=== PATIENT | female | born 1980 | race Caucasian/White ===

== ENCOUNTER 2018-09-05 14:45 | Emergency (ER) | payer BC ==
--- NOTE | 2018-09-05 15:25 | ER Document Report ---
ED Medical Screen (RME) - General Chief Complaint: Palpitations Stated Complaint: HEART RATE ISSUES Time Seen by Provider: 09/05/18 15:12 Primary Care Provider: RO,RICH [Primary Care Provider] - Follow up as needed Notes: Patient is a 38-year-old female that presents to the emergency department for chief complaint of palpitations. No history of this, occurred while she was at work sitting down she felt her heart racing. ROS: Other than noted above, the 12 point review of systems was reviewed with the patient and were negative, all pertinent findings are included in the HPI. PHYSICAL EXAMINATION: Vital signs reviewed. GENERAL: Well-appearing, well-nourished and in no acute distress. HEAD: Atraumatic, normocephalic. EYES: Pupils equal round extraocular movements intact, conjunctiva are normal. ENT: Nares patent NECK: Normal range of motion CV: Heart regular rate and rhythm LUNGS: No respiratory distress Musculoskeletal: Normal range of motion NEUROLOGICAL: Normal speech PSYCH: Normal mood, normal affect. MDM: Patient seen and examined for rapid initial assessment. Vital signs reviewed. A comprehensive ED assessment and evaluation of the patient, analysis of test results and completion of the medical decision making process will be conducted by additional ED providers. *Note is created using voice recognition software and may contain spelling, syntax or grammatical errors. - Related Data Allergies/Adverse Reactions: ciprofloxacin [From Cipro] Allergy (Verified 09/05/18 15:21) Penicillins Allergy (Verified 09/05/18 14:48) codeine Adverse Reaction (Verified 09/05/18 15:21) Past Medical History - Social History Chew tobacco use (# tins/day): No Frequency of alcohol use: None Drug Abuse: None Renal/ Medical History: Denies: Hx Peritoneal Dialysis Past Surgical History: Reports: Hx Oral Surgery - teeth pulled, Hx Tubal Ligation - 2002 - Immunizations Hx Diphtheria, Pertussis, Tetanus Vaccination: Yes - 2007 Physical Exam - Vital signs Vitals: Temp Pulse Resp BP Pulse Ox 99.3 F 95 16 152/86 H 99 09/05/18 15:09 09/05/18 15:09 09/05/18 15:09 09/05/18 15:09 09/05/18 15:09 Course - Vital Signs Vital signs: Temp Pulse Resp BP Pulse Ox 99.3 F 95 16 152/86 H 99 09/05/18 15:09 09/05/18 15:09 09/05/18 15:09 09/05/18 15:09 09/05/18 15:09 Doctor's Discharge - Discharge Referrals: LOCAL,NO [Primary Care Provider] - Follow up as needed
[2018-09-05] MEDS ORDERED: NORMAL SALINE 1000 ML 1,000 ML IV ONE (15:26)
--- NOTE | 2018-09-05 15:54 | RADIOLOGY REPORT (SQ) ---
EXAM DESCRIPTION: CHEST SINGLE VIEW COMPLETED DATE/TIME: 09/05/2018 3:37 pm REASON FOR STUDY: palpitations COMPARISON: None. EXAM PARAMETERS: NUMBER OF VIEWS: One view. TECHNIQUE: Single frontal radiographic view of the chest acquired. RADIATION DOSE: NA LIMITATIONS: None. FINDINGS: LUNGS AND PLEURA: No opacities, masses or pneumothorax. No pleural effusion. MEDIASTINUM AND HILAR STRUCTURES: No masses. Contour normal. HEART AND VASCULAR STRUCTURES: Heart normal in size. Normal vasculature. BONES: No acute findings. HARDWARE: None in the chest. OTHER: No other significant finding. IMPRESSION: 1. NO ACUTE RADIOGRAPHIC FINDING IN THE CHEST. TECHNICAL DOCUMENTATION: JOB ID: [id number] [employer]- All Rights Reserved Reading location - IP/workstation name: [email or web address]
[2018-09-05 16:33] LABS: ABSOLUTE BASOPHILS # (AUTO) 0.1 10^3/uL (0.0-0.2); ABSOLUTE EOSINOPHILS # (AUTO) 0.1 10^3/uL (0.0-0.6); ABSOLUTE LYMPHOCYTES (AUTO) 2.3 10^3/uL (0.5-4.7); ABSOLUTE MONOCYTES (AUTO) 0.7 10^3/uL (0.1-1.4); ABSOLUTE NEUT (AUTO) 7.2 10^3/uL (1.7-8.2); BASOPHILS % (AUTO) 0.5 % (0-2); HEMOGLOBIN 14.6 g/dL (12.0-15.5); LYMPHOCYTES % (AUTO) 22.4 % (13-45); MEAN CORPUSCULAR HEMOGLOBIN 31.1 pg (27.0-33.4); MEAN CORPUSCULAR HGB CONC 35.5 g/dL (32.0-36.0); MEAN CORPUSCULAR VOLUME 88 fl (80-97); MONOCYTES % (AUTO) 6.7 % (3-13); PLATELET COUNT 198 10^3/uL (150-450); RED BLOOD COUNT 4.69 10^6/uL (3.72-5.28); RED CELL DISTRIBUTION WIDTH 12.4 % (11.5-14.0); SEGMENTED NEUTROPHILS % (AUTO) 69.4 % (42-78); TOTAL CELLS COUNTED % (AUTO) 100 %; WHITE BLOOD COUNT 10.3 10^3/uL (4.0-10.5)
[2018-09-05 16:44] LABS: ALANINE AMINOTRANSFERASE 17 U/L (9-52); ALBUMIN 4.7 g/dL (3.5-5.0); ALKALINE PHOSPHATASE 60 U/L (38-126); ANION GAP 10 (5-19); ASPARTATE AMINO TRANSFERASE 18 U/L (14-36); BILIRUBIN,DIRECT 0.1 mg/dL (0.0-0.4); BILIRUBIN,TOTAL 0.3 mg/dL (0.2-1.3); BLOOD UREA NITROGEN 10 mg/dL (7-20); CALCIUM 9.9 mg/dL (8.4-10.2); CARBON DIOXIDE 26 mmol/L (22-30); CHLORIDE 105 mmol/L (98-107); CREATINE KINASE 61 U/L (30-135); GLUCOSE 101 mg/dL (75-110); SODIUM 140.7 mmol/L (137-145); TOTAL PROTEIN 7.4 g/dL (6.3-8.2)
[2018-09-05 16:55] LABS: CREATINE KINASE MB 0.48 ng/mL (<4.55)
[2018-09-05 16:56] LABS: TROPONIN I < 0.012 ng/mL
[2018-09-05 17:00] LABS: FREE T4 (FREE THYROXINE) 1.07 ng/dL (0.78-2.19)
[2018-09-05 17:14] LABS: THYROID STIMULATING HORMONE 2.43 uIU/mL (0.47-4.68)
--- NOTE | 2018-09-05 17:30 | ER Document Report ---
ED General - General Chief Complaint: Palpitations Stated Complaint: HEART RATE ISSUES Time Seen by Provider: 09/05/18 15:12 Primary Care Provider: RICH STARR [NO LOCAL MD] - Follow up as needed Mode of Arrival: Ambulatory Information source: Patient Notes: 38-year-old female with no medical problems presents emergency department with complaints of palpitations. Patient states that around 2PM she was sitting in her car eating lunch and watching Netflix during her break when she began to have the palpitations. Patient states that she just felt like her heart was beating fast. It did not resolve so she contacted EMS. They told her to come to the emergency department for an evaluation. Patient states that the palpitations have resolved. She is feeling much better now. She denies any chest pain, shortness of breath, abdominal pain, nausea, vomiting. She states that she does drink caffeine but has had less caffeine intake today. She denies any illicit drugs. Patient has had a tubal ligation. Patient denies a history of anxiety. - HPI Onset: This afternoon Onset/Duration: Sudden Quality of pain: No pain Severity: Mild Pain Level: Denies Associated symptoms: None Exacerbated by: Denies Relieved by: Denies Similar symptoms previously: No Recently seen / treated by doctor: No - Related Data Allergies/Adverse Reactions: ciprofloxacin [From Cipro] Allergy (Verified 09/05/18 15:21) Penicillins Allergy (Verified 09/05/18 14:48) codeine Adverse Reaction (Verified 09/05/18 15:21) Past Medical History - General Information source: Patient - Social History Smoking Status: Current Every Day Smoker Chew tobacco use (# tins/day): No Frequency of alcohol use: None Drug Abuse: None Family History: Reviewed & Not Pertinent Patient has suicidal ideation: No Patient has homicidal ideation: No Renal/ Medical History: Denies: Hx Peritoneal Dialysis Past Surgical History: Reports: Hx Oral Surgery - teeth pulled, Hx Tubal Ligation - 2002 - Immunizations Hx Diphtheria, Pertussis, Tetanus Vaccination: Yes - 2007 Review of Systems - Review of Systems Constitutional: No symptoms reported EENT: No symptoms reported Cardiovascular: Palpitations Respiratory: No symptoms reported Gastrointestinal: No symptoms reported Genitourinary: No symptoms reported Female Genitourinary: No symptoms reported Musculoskeletal: No symptoms reported Skin: No symptoms reported Hematologic/Lymphatic: No symptoms reported -: Yes All other systems reviewed and negative Physical Exam - Vital signs Vitals: Temp Pulse Resp BP Pulse Ox 99.3 F 95 16 152/86 H 99 09/05/18 15:09 09/05/18 15:09 09/05/18 15:09 09/05/18 15:09 09/05/18 15:09 - Notes Notes: PHYSICAL EXAMINATION: GENERAL: Well-appearing, well-nourished and in no acute distress. HEAD: Atraumatic, normocephalic. EYES: Pupils equal round and reactive to light, extraocular movements intact, conjunctiva are normal. ENT: Nares patent, oropharynx clear without exudates. Moist mucous membranes. NECK: Normal range of motion, supple without lymphadenopathy LUNGS: Breath sounds clear to auscultation bilaterally and equal. No wheezes rales or rhonchi. HEART: Regular rate and rhythm without murmurs ABDOMEN: Soft, nontender, nondistended abdomen. No guarding, no rebound. No masses appreciated. Female : deferred Musculoskeletal: Normal range of motion, no pitting or edema. No cyanosis. NEUROLOGICAL: Cranial nerves grossly intact. Normal speech, normal gait. Normal sensory, motor exams PSYCH: Normal mood, normal affect. SKIN: Warm, Dry, normal turgor, no rashes or lesions noted. Course - Re-evaluation Re-evalutation: 09/05/18 17:29 EKG: Ventricular rate 97, NC interval 152, QRS duration 90, QTc 437, normal si nus rhythm. No ST segment elevation. 09/05/18 18:13 Labs and imaging obtained. No acute process was identified. Patient states that she is feeling better in the emergency department and is comfortable with discharge home. I instructed the patient to follow-up with her primary care physician this week and to return to the emergency department for worsening symptoms. - Vital Signs Vital signs: Temp Pulse Resp BP Pulse Ox 99.3 F 95 22 H 114/73 100 09/05/18 15:09 09/05/18 15:09 09/05/18 18:01 09/05/18 18:01 09/05/18 18:01 - Laboratory Result Diagrams: 09/05/18 16:05 09/05/18 16:05 Discharge - Discharge Clinical Impression: Palpitations Condition: Good Disposition: HOME, SELF-CARE Instructions: Palpitations (Irregular or Rapid Heartrate) ([facility]) Referrals: LOCALMD,NO [NO LOCAL MD] - Follow up as needed EUGENE REN MD [ACTIVE STAFF] - Follow up as needed
--- NOTE | 2018-09-05 17:57 | EKG REPORT ---
SEVERITY:- NORMAL ECG - SINUS RHYTHM : Confirmed by: Ruel Bautista MD 05-Sep-2018 17:56:47
[2018-09-05 18:33] VITALS: BP 135/86
== END 2018-09-05 18:36 | disposition home or self-care (01) ==
LOC: ER 14:45
DX: R00.2 Palpitations (principal); F17.200 Nicotine dependence, unspecified, uncomplicated
CPT/HCPCS: 93005; 99285; 36415; 84439; 82553; 82550; 84443; 85025; 80053; 84484; 71045; 93010; J7030; 96360

== ENCOUNTER 2018-12-22 19:23 | Emergency (ER) | payer BC ==
[2018-12-22] MEDS ORDERED: METHYLPREDNISOLONE INJ 125 MG/2 ML SDV IV ONE (19:43)
[2018-12-22] MEDS ORDERED: EPINEPHRINE INJ/PF 1 MG/1 ML AMPULE IM ONE (19:43)
[2018-12-22] MEDS ORDERED: DIPHENHYDRAMINE HCL 50 MG/ML VIAL IV ONE (19:43)
[2018-12-22] MEDS ORDERED: FAMOTIDINE INJ/PF 20 MG/2 ML SDV IV ONE (19:43)
--- NOTE | 2018-12-22 19:49 | ER Document Report ---
Addendum entered and electronically signed by SUSAN DEWEY PA-C 12/22/18 19:53: Course - Re-evaluation Re-evalutation: 12/22/18 19:53 Pt now starting to get some hives to her right arm. - Vital Signs Vital signs: Temp Pulse Resp BP Pulse Ox 98.4 F 97 18 141/82 H 100 12/22/18 19:31 12/22/18 19:31 12/22/18 19:31 12/22/18 19:31 12/22/18 19:31 Original Note: ED Medical Screen (RME) - General Chief Complaint: Allergic Reaction Stated Complaint: POSSIBLE ALLERGIC REACTION Time Seen by Provider: 12/22/18 19:39 TRAVEL OUTSIDE OF THE [place] IN LAST 30 DAYS: No - HPI Notes: 12/22/18 19:47 Patient is a 38-year-old female with no significant past medical history who presents complaining of feeling of throat closing, some trouble swallowing after eating seafood about 2-1/2 hours ago. Patient states that she started noticing symptoms most of the way through her meal which prompted her to stop eating at that time. Patient states that she does feel somewhat anxious and warm as well. She has not taken any medicines for her symptoms. She has not noted any trouble breathing or drooling/hoarseness. Denies REVELES, fever, neck pain, URI, CP, SOB, wheezing, abd pain, dysuria, n/v/d, back pain, or rash. I have treated and performed a rapid initial assessment of this patient. A comprehensive ED assessment and evaluation of the patient, analysis of test results and completion of medical decision making process will be conducted by additional ED providers. PHYSICAL EXAMINATION: GENERAL: Well-appearing, well-nourished and in no acute distress. A&Ox4. Answers questions appropriately. Moves comfortably w/o notable distress HEAD: Atraumatic, normocephalic. EYES: Pupils equal round and reactive to light, extraocular movements intact, sclera anicteric, conjunctiva are normal. ENT: Nares patent and with clear discharge. oropharynx w/o erythema without exudates. 3+ tonsilar hypertrophy without erythema no exudate. No palatine shift. Uvula midline. No tongue protrusion. No drooling, hoarseness. Moist mucous membranes. No sinus tenderness. NECK: Normal range of motion, supple without lymphadenopathy. No rigidity/meningismus. LUNGS: Breath sounds clear to auscultation bilaterally and equal. No wheezes rales or rhonchi. No retractions HEART: Regular rate and rhythm without murmurs, rubs, gallops. NEUROLOGICAL: Normal speech, normal gait. PSYCH: Normal mood, normal affect. SKIN: Warm, Dry, normal turgor, no rashes or lesions noted. - Related Data Allergies/Adverse Reactions: ciprofloxacin [From Cipro] Allergy (Verified 09/05/18 15:21) Penicillins Allergy (Verified 09/05/18 14:48) codeine Adverse Reaction (Verified 09/05/18 15:21) Past Medical History - Social History Frequency of alcohol use: None Drug Abuse: None Renal/ Medical History: Denies: Hx Peritoneal Dialysis Past Surgical History: Reports: Hx Oral Surgery - teeth pulled, Hx Tubal Ligation - Immunizations Hx Diphtheria, Pertussis, Tetanus Vaccination: Yes - 2007 Physical Exam - Vital signs Vitals: Temp Pulse Resp BP Pulse Ox 98.4 F 97 18 141/82 H 100 12/22/18 19:31 12/22/18 19:31 12/22/18 19:31 12/22/18 19:31 12/22/18 19:31 Course - Vital Signs Vital signs: Temp Pulse Resp BP Pulse Ox 98.4 F 97 18 141/82 H 100 12/22/18 19:31 12/22/18 19:31 12/22/18 19:31 12/22/18 19:31 12/22/18 19:31
--- NOTE | 2018-12-22 20:34 | ER Document Report ---
ED General - General Chief Complaint: Allergic Reaction Stated Complaint: POSSIBLE ALLERGIC REACTION Time Seen by Provider: 12/22/18 19:39 Mode of Arrival: Ambulatory Information source: Patient TRAVEL OUTSIDE OF THE [place] IN LAST 30 DAYS: No - HPI Patient complains to provider of: Allergic reaction Onset: Just prior to arrival Onset/Duration: Sudden Severity: None Associated symptoms: Other - Tightness in throat; slight difficulty in swallowing Exacerbated by: Denies Relieved by: Denies Similar symptoms previously: No Recently seen / treated by doctor: No Notes: 38-year-old female went to [place] this afternoon with her . She ate raw oysters, sharp, and [place]ian fries. On the way home started feeling tight in her throat and felt that was slightly difficult to swallow. No problems breathing. Slight urticarial rash developed shortly after. Came in to be seen. No history of this in the past. Has had an anaphylactic reaction to penicillin but said that this does not feel like that. - Related Data Allergies/Adverse Reactions: ciprofloxacin [From Cipro] Allergy (Verified 09/05/18 15:21) Penicillins Allergy (Verified 09/05/18 14:48) codeine Adverse Reaction (Verified 09/05/18 15:21) Past Medical History - General Information source: Patient - Social History Smoking Status: Current Every Day Smoker Frequency of alcohol use: None Drug Abuse: None Family History: Reviewed & Not Pertinent Patient has suicidal ideation: No Patient has homicidal ideation: No Renal/ Medical History: Denies: Hx Peritoneal Dialysis Past Surgical History: Reports: Hx Oral Surgery - teeth pulled, Hx Tubal Ligation - Immunizations Hx Diphtheria, Pertussis, Tetanus Vaccination: Yes - 2007 Review of Systems - Review of Systems Notes: Constitutional: No fevers. No chills. EENT: Slight dysphagia. Cardiovascular: No chest pain. No palpitations. Respiratory: No cough. No shortness of breath. No respiratory distress. Gastrointestinal: No abdominal pain. No nausea, vomiting, or diarrhea. Genitourinary: Atraumatic. No lesions. No pain. No discharge. Musculoskeletal: Atraumatic. No swelling. No deformities. Skin: Slight hives Lymphatic: No swollen lymph nodes. Neurologic: No headache. No syncope. Psychiatric: No suicidal or homicidal ideation. Physical Exam - Vital signs Vitals: Temp Pulse Resp BP Pulse Ox 98.4 F 97 18 141/82 H 100 06/09/19 19:31 12/22/18 19:31 12/22/18 19:31 12/22/18 19:31 12/22/18 19:31 - Notes Notes: General: Well-developed, well-nourished. In no acute distress. Non-toxic appearing. Cardiac: Well-perfused. Regular rate and rhythm. No murmurs, rubs, or gallops. Pulmonary: No respiratory distress. No cyanosis. Bilateral lung fiels are clear to auscultation. Abdominal: Non-distended. Non-rigid. Bowels sounds are present in all four quadrants. No guarding or rebound. HEENT: Head is atraumatic. Conjunctivae not reddened. No tearing. PERRL. EOMI. Orbits atraumatic. No periorbital swelling or erythema. Oropharynx is without erythema, swelling, or exudates. Neck: Supple. No adenopathy. No meningismus. Dermatologic: Mild urticarial rash Chest: Atraumatic. No chest wall tenderness to palpation. Musculoskeletal: Moves all extremities well. No range of motion deficits. no muscular or joint tenderness. No paraspinal muscle tenderness. no midline spinal tenderness or step-off. Genitourinary: Examination deferred Neurologic: No gross neurologic deficits. Psychiatric: Normal mood. Course - Re-evaluation Re-evalutation: 12/22/18 20:33 Patient got the full medical cocktail including epinephrine. We will monitor her closely for at least a couple of hours. 12/22/18 23:24 Patient continues to be asymptomatic. Feeling significantly improved since her initial symptoms. I will get her ready to go with prednisone, Benadryl, Pepcid, and EpiPen prescriptions. - Vital Signs Vital signs: Temp Pulse Resp BP Pulse Ox 98.4 F 97 18 141/82 H 100 12/22/18 19:31 12/22/18 19:31 12/22/18 19:31 12/22/18 19:31 12/22/18 19:31 Discharge - Discharge Clinical Impression: Allergic reaction to seafood Condition: Good Disposition: HOME, SELF-CARE Instructions: Acute Allergic Reaction ([facility]), Antihistamines ([facility]), Use of Diphenhydramine, Epinephrine, Steroid Medication Injection, Steroid Medication Additional Instructions: Be sure to have all of your medications filled and keep the EpiPen on your person at all times. Suggest avoiding shellfish consumption in the future. Be sure to take all of the medications prescribed for full duration. Follow-up as needed with your primary care provider. If the symptoms come back and are not responsive to your EpiPen return immediately to emergency department Prescriptions: Diphenhydramine HCl [Benadryl 25 mg Capsule] 1 cap PO Q6H 5 Days #20 tab Epinephrine [Epipen 2-Hayden] 0.3 mg IJ ONCE PRN #1 auto.injct PRN Reason: Famotidine [Pepcid 20 mg Tablet] 20 mg PO BID 5 Days #10 tablet Prednisone [Deltasone 20 mg Tablet] 3 tab PO DAILY 5 Days #15 tablet Referrals: [facility] [Provider Group] - Follow up as needed
[2018-12-22 23:51] VITALS: BP 108/78
== END 2018-12-22 23:52 | disposition home or self-care (01) ==
LOC: ER 19:23
DX: T78.1XXA Other adverse food reactions, not elsewhere classified, initial encounter (principal); R09.89 Other specified symptoms and signs involving the circulatory and respiratory systems; R13.10 Dysphagia, unspecified; L50.9 Urticaria, unspecified; F17.200 Nicotine dependence, unspecified, uncomplicated; Z87.892 Personal history of anaphylaxis; Z88.0 Allergy status to penicillin; Z88.1 Allergy status to other antibiotic agents
CPT/HCPCS: 99283; 96372; 96374; 96375; J1200; J0171; J2930; S0028

== ENCOUNTER 2018-12-23 08:41 | Emergency (ER) | payer BC ==
[2018-12-23] MEDS ORDERED: DIPHENHYDRAMINE HCL 50 MG CAPSULE PO ONE (09:30)
[2018-12-23] MEDS ORDERED: PREDNISONE 20 MG TABLET PO ONE (09:31)
[2018-12-23] MEDS ORDERED: FAMOTIDINE 20 MG TABLET PO ONE (09:31)
--- NOTE | 2018-12-23 09:32 | ER Document Report ---
ED General - General Chief Complaint: Allergic Reaction Stated Complaint: SWOLLEN THROAT Time Seen by Provider: 12/23/18 09:21 Primary Care Provider: EUGENE REN MD [Primary Care Provider] - Follow up as needed Notes: Is a 38-year-old female to the emergency department with chief complaint of allergic reaction. Patient was seen and discharged earlier this morning. Woke up. States that she still feels significant pain in the throat and feels like she is having another allergic reaction. Received steroids and Benadryl and Pepcid last night. Has not taken anything this morning. States that it hurts t o swallow. TRAVEL OUTSIDE OF THE [place] IN LAST 30 DAYS: No - Related Data Allergies/Adverse Reactions: ciprofloxacin [From Cipro] Allergy (Verified 09/05/18 15:21) Penicillins Allergy (Verified 09/05/18 14:48) shellfish derived Allergy (Verified 12/23/18 08:46) codeine Adverse Reaction (Verified 09/05/18 15:21) Past Medical History - Social History Smoking Status: Current Every Day Smoker Chew tobacco use (# tins/day): No Frequency of alcohol use: None Drug Abuse: None Family History: Reviewed & Not Pertinent Patient has suicidal ideation: No Patient has homicidal ideation: No Renal/ Medical History: Denies: Hx Peritoneal Dialysis Past Surgical History: Reports: Hx Oral Surgery - teeth pulled, Hx Tubal Ligation - Immunizations Hx Diphtheria, Pertussis, Tetanus Vaccination: Yes - 2007 Course - Re-evaluation Re-evalutation: 12/23/18 10:46 Soft Tissue Neck X-Ray 12/23/18 09:34 IMPRESSION: No radiographic abnormality of the cervical soft tissues or included upper airway. The soft tissue film is unremarkable. Patient feeling better after treatment. At this time I do not feel the patient has significant issues. I did have a hard time seeing the epiglottis so I have sent her back over for repeat lateral. If it looks normal will discharge. She Manuel has some medications for which she needs at discharge. I am telling her as well to start the Claritin daily. 12/23/18 11:53 Soft Tissue Neck X-Ray 12/23/18 10:44 IMPRESSION: No radiographic abnormality of the cervical soft tissues or included upper airway. The epiglottis is radiographically normal on this examination as on immediate prior examination, silhouetted in profile by a small quantity of air in the valleculae on both examinations without evidence of thickening or other abnormality. CT may be used to further evaluate if there is persistent clinical concern. Discharge - Discharge Clinical Impression: Allergic reaction Qualifiers: Encounter type: initial encounter Qualified Code(s): T78.40XA - Allergy, unspecified, initial encounter Condition: Good Disposition: HOME, SELF-CARE Instructions: Acute Allergic Reaction ([facility]) Additional Instructions: Continue to take your medications that were previously prescribed by the emergency provider last night. In the event that you develop any worsening symptoms return. I do recommend the 25 to 50 mg of Benadryl every 6 hours as recommended. He will need to take another dose of Pepcid tonight. You were given your prednisone this morning so you may start the prednisone tomorrow. Referrals: EUGENE REN MD [Primary Care Provider] - Follow up as needed
--- NOTE | 2018-12-23 09:56 | RADIOLOGY REPORT (SQ) ---
EXAM DESCRIPTION: SOFT TISSUE NECK COMPLETED DATE/TIME: 12/23/2018 9:49 am REASON FOR STUDY: hurts to swallow COMPARISON: None. NUMBER OF VIEWS: Two views. TECHNIQUE: AP and lateral radiographic image of the soft tissues of the neck. LIMITATIONS: None. FINDINGS: EPIGLOTTIS: Normal. Contour normal. Aryepiglottic folds normal. PREVERTEBRAL SOFT TISSUES: Normal. No soft tissue swelling. SUBGLOTTIC AREA: Normal. No narrowing. RETROPHARYNGEAL SPACE: Normal. No soft tissue masses. BONES: No significant findings. LUNG APICES: Normal. OTHER: No radiopaque foreign body. No other significant finding. IMPRESSION: No radiographic abnormality of the cervical soft tissues or included upper airway. TECHNICAL DOCUMENTATION: JOB ID: [id number] [employer]- All Rights Reserved Reading location - IP/workstation name: [email or web address]
[2018-12-23] MEDS ORDERED: RACEPINEPHRINE HCL 2.25% NEB 0.5 ML AMPUL NEB ONE ×2 (10:17→11:07)
--- NOTE | 2018-12-23 11:44 | RADIOLOGY REPORT (SQ) ---
EXAM DESCRIPTION: SOFT TISSUE NECK COMPLETED DATE/TIME: 12/23/2018 11:15 am REASON FOR STUDY: lateral repeat to visualize epiglotis COMPARISON: None. NUMBER OF VIEWS: Two views. TECHNIQUE: AP and lateral radiographic image of the soft tissues of the neck. LIMITATIONS: None. FINDINGS: EPIGLOTTIS: Normal. Contour normal. Aryepiglottic folds normal. PREVERTEBRAL SOFT TISSUES: Normal. No soft tissue swelling. SUBGLOTTIC AREA: Normal. No narrowing. RETROPHARYNGEAL SPACE: Normal. No soft tissue masses. BONES: No significant findings. LUNG APICES: Normal. OTHER: No radiopaque foreign body. No other significant finding. IMPRESSION: No radiographic abnormality of the cervical soft tissues or included upper airway. The epiglottis is radiographically normal on this examination as on immediate prior examination, silhouet shama in profile by a small quantity of air in the valleculae on both examinations without evidence of thickening or other abnormality. CT may be used to further evaluate if there is persistent clinical concern. TECHNICAL DOCUMENTATION: JOB ID: [id number] [employer]- All Rights Reserved Reading location - IP/workstation name: [email or web address]
[2018-12-23 12:56] VITALS: BP 125/77
== END 2018-12-23 12:55 | disposition home or self-care (01) ==
LOC: ER 08:41
DX: T78.40XA Allergy, unspecified, initial encounter (principal); Z79.899 Other long term (current) drug therapy; F17.200 Nicotine dependence, unspecified, uncomplicated
CPT/HCPCS: 94640; 99283; 70360; J7512

== ENCOUNTER 2018-12-30 11:44 | Emergency (ER) | payer BC ==
--- NOTE | 2018-12-30 13:08 | ER Document Report ---
ED Medical Screen (RME) - General Chief Complaint: Allergic Reaction Stated Complaint: JAW PAIN Primary Care Provider: EUGENE REN MD [Primary Care Provider] - Follow up as needed TRAVEL OUTSIDE OF THE [place] IN LAST 30 DAYS: No - HPI Notes: 12/30/18 13:05 Patient is a 38-year-old female who presents for reevaluation after her visit yesterday. Patient has been seen multiple times over the past couple weeks for allergic type reactions. Patient states that she has been feeling jittery with some pain in the left anterior side of her neck. Patient was evaluated yesterday and was given Ativan and Carafate which did help her symptoms. Patient states that she called this morning and was told to come back in because her symptoms are returning. She has had CT imaging of her neck at a previous visit recently. She still urinating normally and having normal bowel movements. Denies REVELES, fever, neck pain, URI, CP, SOB, Abd pain, n/v/d, dysuria, back pain, or rash. I have treated and performed a rapid initial assessment of this patient. A comprehensive ED assessment and evaluation of the patient, analysis of test results and completion of medical decision making process will be conducted by additional ED providers. PHYSICAL EXAMINATION: GENERAL: Well-appearing, well-nourished and in no acute distress. A&Ox4. Answers questions appropriately. Moves comfortably w/o notable distress HEAD: Atraumatic, normocephalic. EYES: Pupils equal round and reactive to light, extraocular movements intact, sclera anicteric, conjunctiva are normal. ENT: Nares patent and without discharge. oropharynx w/o erythema/exudates. 2+ tonsilar hypertrophy without erythema no exudate. No palatine shift. Uvula midline. No tongue protrusion. No drooling, hoarseness, or airway compromise. Moist mucous membranes. No sinus tenderness. NECK: Normal range of motion, supple without lymphadenopathy. No rigidity/meningismus. LUNGS: Breath sounds clear to auscultation bilaterally and equal. No wheezes rales or rhonchi. No retractions HEART: Regular rate and rhythm without murmurs, rubs, gallops. - Related Data Allergies/Adverse Reactions: ciprofloxacin [From Cipro] Allergy (Verified 12/29/18 10:19) Penicillins Allergy (Verified 12/29/18 10:19) shellfish derived Allergy (Verified 12/29/18 10:19) codeine Adverse Reaction (Verified 12/29/18 10:19) Past Medical History Renal/ Medical History: Denies: Hx Peritoneal Dialysis Past Surgical History: Reports: Hx Oral Surgery - teeth pulled, Hx Tubal Ligation - Immunizations Hx Diphtheria, Pertussis, Tetanus Vaccination: Yes - 2007 Physical Exam - Vital signs Vitals: Temp Pulse Resp BP Pulse Ox 98.2 F 106 H 18 129/91 H 98 12/30/18 12:20 12/30/18 12:20 12/30/18 12:20 12/30/18 12:20 12/30/18 12:20 Course - Vital Signs Vital signs: Temp Pulse Resp BP Pulse Ox 98.2 F 106 H 18 129/91 H 98 12/30/18 12:20 12/30/18 12:20 12/30/18 12:20 12/30/18 12:20 12/30/18 12:20 Doctor's Discharge - Discharge Referrals: EUGENE REN MD [Primary Care Provider] - Follow up as needed
[2018-12-30 13:29] LABS: ABSOLUTE BASOPHILS # (AUTO) 0.1 10^3/uL (0.0-0.2); ABSOLUTE EOSINOPHILS # (AUTO) 0.1 10^3/uL (0.0-0.6); ABSOLUTE MONOCYTES (AUTO) 0.7 10^3/uL (0.1-1.4); ABSOLUTE NEUT (AUTO) 8.5 10^3/uL (1.7-8.2); BASOPHILS % (AUTO) 0.5 % (0-2); EOSINOPHILS % (AUTO) 0.6 % (0-6); HEMATOCRIT 42.1 % (36.0-47.0); HEMOGLOBIN 14.5 g/dL (12.0-15.5); LYMPHOCYTES % (AUTO) 17.6 % (13-45); MEAN CORPUSCULAR HGB CONC 34.3 g/dL (32.0-36.0); MEAN CORPUSCULAR VOLUME 87 fl (80-97); MONOCYTES % (AUTO) 5.9 % (3-13); PLATELET COUNT 239 10^3/uL (150-450); RED BLOOD COUNT 4.83 10^6/uL (3.72-5.28); RED CELL DISTRIBUTION WIDTH 12.8 % (11.5-14.0); SEGMENTED NEUTROPHILS % (AUTO) 75.4 % (42-78); TOTAL CELLS COUNTED % (AUTO) 100 %; WHITE BLOOD COUNT 11.3 10^3/uL (4.0-10.5)
[2018-12-30 13:37] LABS: APPEARANCE,URINE SLIGHTLY-CLOUDY; BILIRUBIN,URINE NEGATIVE (NEGATIVE); COLOR,URINE YELLOW; GLUCOSE, URINE NEGATIVE (NEGATIVE); KETONES,URINE 20 mg/dL (NEGATIVE); LEUKOCYTE ESTERASE,URINE NEGATIVE (NEGATIVE); NITRITE,URINE NEGATIVE (NEGATIVE); PROTEIN,URINE NEGATIVE (NEGATIVE); URINE SPECIFIC GRAVITY 1.009; UROBILINOGEN,URINE NEGATIVE mg/dL (<2.0)
[2018-12-30 13:51] LABS: ALANINE AMINOTRANSFERASE 29 U/L (9-52); ALBUMIN 4.7 g/dL (3.5-5.0); ALKALINE PHOSPHATASE 58 U/L (38-126); ANION GAP 11 (5-19); ASPARTATE AMINO TRANSFERASE 22 U/L (14-36); BILIRUBIN,DIRECT 0.3 mg/dL (0.0-0.4); BILIRUBIN,TOTAL 1.1 mg/dL (0.2-1.3); BLOOD UREA NITROGEN 7 mg/dL (7-20); CALCIUM 9.7 mg/dL (8.4-10.2); CARBON DIOXIDE 21 mmol/L (22-30); CHLORIDE 106 mmol/L (98-107); GLUCOSE 107 mg/dL (75-110); PHOSPHORUS 3.6 mg/dL (2.5-4.5); POTASSIUM 4.3 mmol/L (3.6-5.0); TOTAL PROTEIN 8.1 g/dL (6.3-8.2)
[2018-12-30 13:53] LABS: URINE AMPHETAMINES SCREEN NEGATIVE; URINE BARBITURATES SCREEN NEGATIVE; URINE BENZODIAZEPINES SCREEN NEGATIVE; URINE COCAINE SCREEN NEGATIVE; URINE MARIJUANA (THC) SCREEN NEGATIVE; URINE METHADONE SCREEN NEGATIVE; URINE PHENCYCLIDINE SCREEN NEGATIVE
[2018-12-30] MEDS ORDERED: NORMAL SALINE 1000 ML 1,000 ML IV ONE (14:32)
[2018-12-30] MEDS ORDERED: LORAZEPAM 1 MG TABLET PO ONE (14:33)
--- NOTE | 2018-12-30 16:01 | RADIOLOGY REPORT (SQ) ---
EXAM DESCRIPTION: CHEST 2 VIEWS COMPLETED DATE/TIME: 12/30/2018 3:29 pm REASON FOR STUDY: palpitations COMPARISON: 09/05/2018 EXAM PARAMETERS: NUMBER OF VIEWS: two views TECHNIQUE: Digital Frontal and Lateral radiographic views of the chest acquired. RADIATION DOSE: NA LIMITATIONS: none FINDINGS: LUNGS AND PLEURA: No opacities, masses or pneumothorax. No pleural effusion. MEDIASTINUM AND HILAR STRUCTURES: No masses or contour abnormalities. HEART AND VASCULAR STRUCTURES: Heart normal size. No evidence for failure. BONES: No acute findings. HARDWARE: None in the chest. OTHER: No other significant finding. IMPRESSION: NO ACUTE RADIOGRAPHIC FINDING IN THE CHEST. TECHNICAL DOCUMENTATION: JOB ID: [id number] [employer]- All Rights Reserved Reading location - IP/workstation name: [email or web address]
[2018-12-30] MEDS ORDERED: MAG HYDROX/AL HYDROX/SIMETH SUSP 30 ML UDCUP PO ONE (17:19)
[2018-12-30] MEDS ORDERED: LIDOCAINE 2% VISCOUS SOLN 20 ML UDCUP PO ONE (17:19)
--- NOTE | 2018-12-30 17:25 | ER Document Report ---
ED General - General Chief Complaint: Allergic Reaction Stated Complaint: JAW PAIN Time Seen by Provider: 12/30/18 13:08 Primary Care Provider: EUGENE REN MD [Primary Care Provider] - Follow up tomorrow Information source: Patient TRAVEL OUTSIDE OF THE [place] IN LAST 30 DAYS: No - HPI Notes: 38-year-old female to the emergency department with complaints of persistent feelings of jitteriness, nausea, upper abdominal discomfort that she has been experiencing since Sunday and now palpitations and feeling like her heart racing and right jaw pain. She was seen by myself yesterday in the emergency department and thought to have a reaction to prednisone and Benadryl that she had been on for the past week. She was given Ativan and fluids as well as Zofran. She improved and was discharged home. I encouraged her to follow-up if she got worse and when she started to experience the heart racing she decided to come back for further care. She has no prior cardiac history, no prior DVT history, no leg swelling, no recent travel, no oral contraceptive use. She does smoke. She does not have high blood pressure, she does not have diabetes, she does not have hyperlipidemia. There is a history for congestive heart failure. States that last night after discharge she felt really good and was able to eat. When she awoke this morning however the jitteriness had returned as well as the nausea. She took the Carafate prescribed to her and then waited to eat. She attempted to try to eat some applesauce but could not force herself to eat more. She gave herself some Zofran but still continued to feel jittery, nauseated, have burning upper abdominal pain. Not long after that she started to develop the heart racing and jaw. - Related Data Allergies/Adverse Reactions: ciprofloxacin [From Cipro] Allergy (Verified 12/29/18 10:19) Penicillins Allergy (Verified 12/29/18 10:19) shellfish derived Allergy (Verified 12/29/18 10:19) codeine Adverse Reaction (Verified 12/29/18 10:19) Past Medical History - General Information source: Patient - Social History Smoking Status: Current Every Day Smoker Frequency of alcohol use: None Drug Abuse: None Family History: Reviewed & Not Pertinent Patient has suicidal ideation: No Patient has homicidal ideation: No Renal/ Medical History: Denies: Hx Peritoneal Dialysis Past Surgical History: Reports: Hx Oral Surgery - teeth pulled, Hx Tubal Ligation - Immunizations Hx Diphtheria, Pertussis, Tetanus Vaccination: Yes - 2007 Review of Systems - Review of Systems Constitutional: Malaise. denies: Chills, Fever EENT: No symptoms reported, Other - Jaw pain Cardiovascular: Palpitations, Heart racing. denies: Syncope, Dizziness, Lightheaded Respiratory: denies: Cough, Short of breath Gastrointestinal: Abdominal pain, Nausea. denies: Diarrhea, Vomiting Genitourinary: No symptoms reported Skin: No symptoms reported Neurological/Psychological: No symptoms reported -: Yes All other systems reviewed and negative Physical Exam - Vital signs Vitals: Temp Pulse Resp BP Pulse Ox 98.2 F 106 H 18 129/91 H 98 12/30/18 12:20 12/30/18 12:20 12/30/18 12:20 12/30/18 12:20 12/30/18 12:20 Interpretation: Normal - General General appearance: Appears well, Alert - HEENT Head: Normocephalic, Atraumatic Eyes: Normal Pupils: PERRL Mouth/Lips: Normal, Other - Airway is grossly patent. There is no Jesus's angina. It is not drooling Neck: Supple. No: Anterior cervical chain, Posterior cervical chain, Carotid bruit, Kernig's, Lymphadenopathy, Meningismus, Neck mass, Subcutaneous emphysema - Respiratory Respiratory status: No respiratory distress Chest status: Nontender Breath sounds: Normal Chest palpation: Normal - Cardiovascular Rhythm: Regular Heart sounds: Normal auscultation Murmur: No Notes: No leg edema - Abdominal Inspection: Normal Distension: No distension Bowel sounds: Normal Tenderness: Nontender Organomegaly: No organomegaly - Back Back: Normal, Nontender - Extremities General upper extremity: Normal inspection, Nontender, Normal color, Normal ROM, Normal temperature General lower extremity: Normal inspection, Nontender, Normal color, Normal ROM, Normal temperature, Normal weight bearing. No: Mike's sign - Neurological Neuro grossly intact: Yes Cognition: Normal Orientation: AAOx4 [place] Coma Scale Eye Opening: Spontaneous [place] Coma Scale Verbal: Oriented Tammy Coma Scale Motor: Obeys Commands [place] Coma Scale Total: 15 Speech: Normal Motor strength normal: LUE, RUE, LLE, RLE Sensory: Normal - Psychological Associated symptoms: Normal affect, Normal mood - Skin Skin Temperature: Warm Skin Moisture: Dry Skin Color: Normal Course - Vital Signs Vital signs: Temp Pulse Resp BP Pulse Ox 98.2 F 105 H 18 119/78 100 12/30/18 18:00 12/30/18 18:00 12/30/18 18:00 12/30/18 18:00 12/30/18 18:00 - Laboratory Result Diagrams: 12/30/18 13:15 12/30/18 13:15 Laboratory results interpreted by me: 12/30/18 12/30/18 12/30/18 13:15 13:15 13:15 WBC 11.3 H Absolute Neutrophils 8.5 H Carbon Dioxide 21 L Urine Ketones 20 H Urine Blood SMALL H - EKG Interpretation by Me EKG shows normal: Sinus rhythm Rate: Normal Rhythm: NSR When compared to previous EKG there are: No significant change Additional EKG results interpreted by me: No STEMI, Twave inversions in lead III which is unchanged from prior. - Transfer of Care Notes: Impression: Palpitations, jitteriness, nausea. Patient is feeling much better after oral Ativan, GI cocktail. She has been extensively evaluated today. Trending labs are unremarkable -- leukocytosis from steroid use has improved today. She has a WNL D Dimer. She has a negative Troponin. Her EKG is reassuring. Her XR is unremarkable. Plan to send outpatient for cardiology and GI follow up for symptoms. Also discussed with patient that this could be an element of stress and anxiety. Patient actually agrees that this could be the case. Her mother has recently and she has been finding grieving to be difficult. She denies SI or HI. She agrees she should seek a therapist and states she will. Will have her follow up outpatient. Encouraged her to return if her symptoms are worsening and concerning. Discussed this patient with Dr. Bailon in length. She agrees with the plan and outpatient follow up plan. Discharge - Discharge Clinical Impression: Jittery, Acid reflux, Palpitations Condition: Stable Disposition: HOME, SELF-CARE Instructions: Palpitations (Irregular or Rapid Heartrate) ([facility]), Reflux Disease (GERD) ([facility]) Additional Instructions: FOLLOW UP WITH [facility] at [address] [place], [place] [id number], . RETURN IF WORSE. PUSH FLUIDS. TAKE MEDICINES PRESCRIBED. Referrals: EUGENE REN MD [Primary Care Provider] - Follow up tomorrow
[2018-12-30 18:02] VITALS: BP 119/78
--- NOTE | 2018-12-30 23:43 | EKG REPORT ---
SEVERITY:- BORDERLINE ECG - SINUS RHYTHM BORDERLINE T ABNORMALITIES, INFERIOR LEADS : Confirmed by: Alla Hernandez MD 30-Dec-2018 23:42:45
== END 2018-12-30 18:03 | disposition home or self-care (01) ==
LOC: ER 11:44
DX: R00.2 Palpitations (principal); R45.0 Nervousness; K21.9 Gastro-esophageal reflux disease without esophagitis; Z88.8 Allergy status to other drugs, medicaments and biological substances; Z88.1 Allergy status to other antibiotic agents; Z88.0 Allergy status to penicillin; Z91.013 Allergy to seafood; F17.200 Nicotine dependence, unspecified, uncomplicated
CPT/HCPCS: 93005; 99283; 96360; 96361; 36415; 83735; 84100; 84443; 85025; 81025; 80053; 81001; 84484; 80307; 85379; 71046; 93010; J3490; J7030

== ENCOUNTER → 2019-04-18 | Outpatient (CLI) | payer BC ==
--- NOTE | 2019-04-18 13:54 | RADIOLOGY REPORT (SQ) ---
EXAM DESCRIPTION: SHOULDER BILAT 2 OR MORE VIEWS COMPLETED DATE/TIME: 04/18/2019 1:16 pm REASON FOR STUDY: POLYARTHRITIS, UNSPECIFIED M13.0 POLYARTHRITIS, UNSPECIFIED COMPARISON: None. NUMBER OF VIEWS: Three views. TECHNIQUE: Internal rotation, external rotation, and Y view images acquired of the right and left sh oulder. LIMITATIONS: None. FINDINGS: MINERALIZATION: Normal. BONES: No acute fracture. No worrisome bone lesions. JOINTS: No dislocation. VISUALIZED LUNGS AND RIBS: No pneumothorax. No rib fracture. SOFT TISSUES: No radiopaque foreign body. OTHER: No other significant finding. IMPRESSION: NEGATIVE STUDY OF THE RIGHT AND LEFT SHOULDERS. NO RADIOGRAPHIC EVIDENCE OF ACUTE INJURY . TECHNICAL DOCUMENTATION: JOB ID: [id number] [employer]- All Rights Reserved Reading location - IP/workstation name: [email or web address]
== END ==
LOC: OD 12:58
PROVIDERS: ATTEND Internal Medicine
DX: M13.0 Polyarthritis, unspecified (principal)

== ENCOUNTER → 2019-05-13 | Outpatient (CLI) | payer BC ==
--- NOTE | 2019-05-13 12:40 | RADIOLOGY REPORT (SQ) ---
EXAM DESCRIPTION: BARIUM SWALLOW ESOPHAGUS COMPLETED DATE/TIME: 05/13/2019 10:05 am REASON FOR STUDY: (R11.0)NAUSEA R11.0 NAUSEA R22.1 LOCALIZED SWELLING, MASS AND LUMP, NECK COMPARISON: None. TECHNIQUE: Under fluoroscopic guidance, patient ingested effervescent granules followed by thick and thin barium. Fluoroscopic spot images and routine radiographic images acquired and stored on PACS. 12 MM BARIUM TABLET GIVEN: Yes. No significant delay in passage. LIMITATIONS: None. FLUOROSCOPY TIME: FLUORO TIME: 55 seconds of fluoroscopy was used. 7 images saved to PACS. FINDINGS: NEUROMUSCULAR COORDINATION OF SWALLOW: Normal. No aspiration. ESOPHAGEAL MOTILITY: Normal peristalsis. No esophageal spasm. ESOPHAGEAL MUCOSA: Normal mucosa without masses or ulceration. GASTRO-ESOPHAGEAL JUNCTION: No hiatal hernia. Mild gastroesophageal reflux seen. 12 mm barium table t passed through the GE junction without delay. NON-GI TRACT STRUCTURES: No significant finding. OTHER: No other significant finding. IMPRESSION: MILD GASTROESOPHAGEAL REFLUX OTHERWISE NORMAL DOUBLE CONTRAST BARIUM SWALLOW. COMMENT: Quality ID [id number]: Final reports for procedures using fluoroscopy that document radiation exp osure indices, or exposure time and number of fluorographic images (if radiation exposure indices are not available) TECHNICAL DOCUMENTATION: JOB ID: [id number] [employer]- All Rights Reserved Reading location - IP/workstation name: [email or web address] [id number]
--- NOTE | 2019-05-13 13:24 | RADIOLOGY REPORT (SQ) ---
EXAM DESCRIPTION: U/S THYROID/SFT TISS HD NECK COMPLETED DATE/TIME: 05/13/2019 9:43 am REASON FOR STUDY: (R22.1)LOCALIZED SWELLING, MASS AND LUMP, NECK R11.0 NAUSEA R22.1 LOCALIZED SWEL LING, MASS AND LUMP, NECK COMPARISON: None. TECHNIQUE: Dynamic and static barron-scale images acquired of the thyroid gland. Selected additional c olor/power Doppler images recorded. All images stored to PACS. LIMITATIONS: None. FINDINGS: Imaging of the area of concern in the left side of the neck shows some lymph nodes. The l argest measures 16 x 9 x 7 mm. Comparison imaging the right-sided shows a node measuring 19 x 10 x 5 mm. IMPRESSION: Some lymph nodes are present in the neck. No other significant finding. TECHNICAL DOCUMENTATION: JOB ID: [id number] [employer]- All Rights Reserved Reading location - IP/workstation name: [email or web address]
== END ==
LOC: RAD 09:04
PROVIDERS: ATTEND Physician Assistant
DX: K21.9 Gastro-esophageal reflux disease without esophagitis (principal); R11.0 Nausea; R22.1 Localized swelling, mass and lump, neck
CPT/HCPCS: 74220; 76536

== ENCOUNTER → 2020-06-17 | Outpatient (CLI) | payer BC ==
--- NOTE | 2020-06-17 16:54 | WOMENS IMAGING REPORT ---
EXAM DESCRIPTION: BILAT SCREENING MAMMO W/CAD IMAGES COMPLETED DATE/TIME: 06/17/2020 11:33 am REASON FOR STUDY: Z12.31 ENCOUNTER FOR SCREENING MAMMOGRAM FOR MALIGNANT NEOPLASM OF BREAST Z12.31 ENCNTR SCREEN MAMMOGRAM FOR MALIGNANT NEOPLASM OF SEAN COMPARISON: None. Baseline imaging. EXAM PARAMETERS: Standard craniocaudal and mediolateral oblique views of each breast recorded using digital acquisition. Read with the assistance of CAD. .[facility] [place] [employer] Version 9.2 LIMITATIONS: None. FINDINGS: No suspicious masses, suspicious calcifications or architectural distortion. No areas of c oncern. IMPRESSION: NEGATIVE MAMMOGRAM. BIRADS 1 BREAST DENSITY: c. The breasts are heterogeneously dense, which may obscure small masses. BIRAD: ASSESSMENT: 1 NEGATIVE RECOMMENDATION: ROUTINE SCREENING COMMENT: The patient has been notified of the results by letter per MQSA requirements. Additional no tification policies are in place for contacting patient with suspicious or incomplete findings. Quality ID #[id number]: The [employer] recommends an annual screening mammogram for women aged 40 years or over. This facility utilizes a reminder system to ensure that all patients receive reminder letters, and/or direct phone calls for appointments. This includes reminders for routine scr eening mammograms, diagnostic mammograms, or other Breast Imaging Interventions when appropriate. Th is patient will be placed in the appropriate reminder system. TECHNICAL DOCUMENTATION: FINDING NUMBER: (1) ASSESSMENT: (1) JOB ID: [id number] [employer]- All Rights Reserved Reading location - IP/workstation name: [email or web address]
== END ==
LOC: WI 10:46
PROVIDERS: ATTEND Physician Assistant
DX: Z12.31 Encounter for screening mammogram for malignant neoplasm of breast (principal)
CPT/HCPCS: 77067